=== PATIENT | female | born 1980 | race Caucasian/White ===

== ENCOUNTER → 2018-05-04 11:17 | Outpatient (CLI) | payer OTHER, SELFPAY ==
[2018-05-05 09:16] LABS: Strep Grp B PCR NEG for Grp B Strep
== END ==
PROVIDERS: Family Provider Obstetrics & Gynecology; PCP Obstetrics & Gynecology; Visit Provider Obstetrics & Gynecology
DX: Z34.83 Encounter for supervision of other normal pregnancy, third trimester (principal)
CPT/HCPCS: 87653

== ENCOUNTER 2018-05-19 14:05 | Outpatient (CLI) | payer OTHER, SELFPAY | END 2018-05-19 14:45 | disposition home or self-care (01) | LOC: LABOR 14:12 → OB 05-20 11:56 | PROVIDERS: Family Provider Obstetrics & Gynecology; PCP Obstetrics & Gynecology; Visit Provider Obstetrics & Gynecology | DX: O14.93 Unspecified pre-eclampsia, third trimester (principal); Z3A.37 37 weeks gestation of pregnancy | CPT/HCPCS: 59025; G0378; G0379 ==

== ENCOUNTER 2018-05-25 15:58 | Outpatient (CLI) | payer OTHER, SELFPAY ==
[2018-05-25 16:33] LABS: Platelet Count 211 X10^3/uL (150-400)
[2018-05-25 16:57] LABS: Aspartate Aminotransferase 30 IU/L (14-36); BUN Creatinine Ratio 11.7 (6-22); Blood Urea Nitrogen 7 mg/dL (7-17); Estimated Glomerular Filt Rate > 60.0 mL/min (>60); Uric Acid 5.3 mg/dL (2.5-6.2)
--- NOTE | 2018-05-25 17:45 | PM.OBTRLD ---
Visit Information Visit Information Date of evaluation: 05/25/18 Primary OB Provider: Maria G Fajardo Reason for Evaluation: Yes non-stress test and Yes other Vital Signs Vital Signs: BP 131/81, 124/72 Review of Systems Eyes Eyes: Denies blind spots, Denies blurry vision and Denies change in vision Exam Narrative Exam Narrative: Generally: Patient is sitting up in bed, no acute distress AmniSure: Negative Objective Labs Result Diagrams: 05/25/18 14:14 05/25/18 16:14 Labs: Laboratory Results - last 24 hr 05/25/18 05/25/18 14:14 16:14 Plt Count 211 BUN 7 Creatinine 0.60 Estimated GFR > 60.0 BUN/Creatinine Ratio 11.7 Uric Acid 5.3 AST 30 Evaluation Evaluation Baseline heart rate: 135 monitor accelerations: Present monitor decelerations: Absent Category of Tracing: I Laboratory results: Laboratory Tests 05/25/18 05/25/18 14:14 16:14 Plt Count 211 BUN 7 Creatinine 0.60 Estimated GFR > 60.0 BUN/Creatinine Ratio 11.7 Uric Acid 5.3 AST 30 Non-invasive Membranes Rupture Test: negative Diagnosis, Plan/Disposition Final Diagnosis (1) 38 weeks gestation of : Current Visit: No Status: Acute Plan/Disposition Plan: Discharge to home Follow-up as scheduled on 05/31/2018 Signs and symptoms of preeclampsia reviewed
== END 2018-05-25 17:44 | disposition home or self-care (01) ==
LOC: LABOR 16:49 → OB 05-26 11:07
PROVIDERS: Family Provider Obstetrics & Gynecology; PCP Obstetrics & Gynecology; Visit Provider Obstetrics & Gynecology
DX: O36.8130 Decreased fetal movements, third trimester, not applicable or unspecified (principal); Z3A.38 38 weeks gestation of pregnancy; Z03.71 Encounter for suspected problem with amniotic cavity and membrane ruled out
CPT/HCPCS: 59025; 59050; 84112; 84450; 84550; 85049; G0378; G0379

== ENCOUNTER 2018-05-29 06:01 | Inpatient (IN) | payer OTHER, SELFPAY ==
[2018-05-29 07:52] LABS: Add Manual Diff / Slide Review NO; Basophils Percent Auto 0.4 % (0-2); Eosinophils Percent Auto 0.6 % (2-4); Hematocrit 29.1 % (36-46); Hemoglobin 9.4 g/dL (12.0-16.0); Lymphocytes Percent Auto 28.3 % (25-40); Mean Corpuscular HGB Conc 32.3 % (30-36); Mean Corpuscular Hemoglobin 23.2 PG (26-34); Monocytes Percent Auto 6.8 % (3-14); Neutrophils Absolute Auto 3500 /uL (3000-5900); Neutrophils Percent Auto 63.9 % (50-75); Platelet Count 179 X10^3/uL (150-400); Red Blood Cell Count 4.04 X10^6/uL (4.0-5.2); Red Cell Distribution Width 15.7 % (11.6-14.8); White Blood Cell Count 5.4 X10^3/uL (4.5-11.0)
[2018-05-29] MEDS: OXYTOCIN PREMIX 30 UNIT/500 ML PLAST..BAG IV (09:48)
[2018-05-29] MEDS: LACTATED RINGERS 1,000 ML 125 ML IV (09:48)
[2018-05-29 11:27] VITALS: BP 107/61
[2018-05-29] MEDS: LACTATED RINGERS 1,000 ML 100 ML IV (12:55)
--- NOTE | 2018-05-29 14:57 | P.HPOB_ITS ---
OB HPI Date/Time Date of admission: 05/29/18 Date Patient Seen: 05/29/18 Time Patient Seen: 09:30 History of Present Illness Chief complaint: labor : 6 Para: 3 Estimated Date of Delivery: 06/08/18 Estimated Gestational Age (weeks): 38+ 4 Narrative: Candice Brito is a 37 year old female 6 para 4 who presented at 6:00 a.m. with spontaneous rupture membranes at 4:30 a.m. no significant contractions. History of Present care: good care Dating criteria: LMP confirmed by 1st trimester US Ultrasounds: normal 1st trimester US and normal mid trimester US Obstetrical complications: gestational hypertension Medical complications: none Preadmission Labs Blood type: O (+) positive -: Antibody screen: negative, GBS status: negative, HBsAG: negative, HIV: negative and RPR/VDLR: negative -: Chlamydia screen: not detected and Gonorrhea screen: not detected -: Rubella: immune and Varicella: immune HCT: 32.8 HCAB: negative PAP: Normal Cell-free DNA: 46 xy Urine: Mixed 1 hr GTT: 79 Prior (ies) History: 2 miscarriages 3 spontaneous vaginal deliveries Evaluation Evaluation Baseline heart rate: 145 Variability: Moderate (11-25) monitor accelerations: Present monitor decelerations: Absent Contraction Frequency (minutes): 7 Uterine Contraction Intensity: Moderate Category of Tracing: I Cervical dilation (cm): 4 Cervical effacement (%): 80 station: -1 Laboratory results: Laboratory Tests 05/29/18 05/29/18 06:45 06:45 WBC 5.4 RBC 4.04 Hgb 9.4 L Hct 29.1 L MCV 72.0 L MCH 23.2 L MCHC 32.3 RDW 15.7 H Plt Count 179 Neut % (Auto) 63.9 Lymph % (Auto) 28.3 Chambers % (Auto) 6.8 Eos % (Auto) 0.6 L Baso % (Auto) 0.4 Neut # (Auto) 3500 Blood Type O Positive Antibody Screen Negative Non-invasive Membranes Rupture Test: positive [facility] Social History Smoking Status: Never smoker Meds Home Medications Medication Instructions Recorded Confirmed Type ondansetron [Zofran ODT] 4 mg SUBLINGUAL Q6HP PRN #20 odt 10/27/17 Rx metoclopramide HCl 10 mg PO TID #40 tab 12/06/17 Rx Allergies Allergy/AdvReac Type Severity Reaction Status Date / Time No Known Drug Allergies Allergy Verified 05/29/18 07:04 Exam Vital Signs (past 8 hours): - 05/29/18 11:27 Blood Pressure 107/61 Narrative Exam Narrative: Generally: Patient is sitting up in bed, no acute distress. Status post epidural. Fundal height: 40 cm Estimated weight 8 1/2 pounds Extremities: Negative Homans, no edema Objective Labs Result Diagrams: 05/29/18 06:45 Labs: Laboratory Results - last 24 hr 05/29/18 05/29/18 06:45 06:45 WBC 5.4 RBC 4.04 Hgb 9.4 L Hct 29.1 L MCV 72.0 L MCH 23.2 L MCHC 32.3 RDW 15.7 H Plt Count 179 Neut % (Auto) 63.9 Lymph % (Auto) 28.3 Chambers % (Auto) 6.8 Eos % (Auto) 0.6 L Baso % (Auto) 0.4 Neut # (Auto) 3500 Blood Type O Positive Antibody Screen Negative Assessment and Plan (1) Spontaneous rupture of membranes: Current visit: Yes Status: Acute (2) 38 weeks gestation of : Current visit: Yes Status: Acute Assessment: 37-year-old 6 para 3 at 30 and 4 7th weeks gestation status post spontaneous rupture of membranes No active labor Plan: Pitocin per protocol 2 Expected management to spontaneous vaginal delivery
--- NOTE | 2018-05-29 14:57 | PM.OBPRVD ---
Events: Induced HTN Delivery date: 05/29/18 Intrapartal events: None Delivery augmentation: pitocin Delivery monitor: external FHT Route of delivery: Episiotomy description: None Laceration description: Perineal - 2nd Degree Delivery repair: vicryl and chromic Estimated blood loss (mL): 250 Anesthesia type: Epidural Narrative: Patient complete and pushed with 3 contractions. At 2:28 p.m., a live male delivered spontaneously over an intact perineu. A tight nuchal cord x1 was cut on the perineum. The remainder of the body delivered without difficulty and was placed on mom's abdomen. Cord bloods were obtained. The placenta delivered intact with a 3 vessel cord at 2:38 p.m.. Fundus was massaged to firm. Pitocin was given in the IV fluids. A second-degree perineal laceration was repaired in the usual fashion. . Estimated blood loss 250 cc. Apgars 8 at 1 min and 9 at 5 min. Epidural analgesia. Mom and infant stable to recovery. Plan for aftercare: To routine care
[2018-05-29] MEDS: DERMOPLAST SPRAY 20% 60 ML 1 SPRAY TOP (18:03)
[2018-05-29] MEDS: IBUPROFEN 600 MG TABLET PO (18:03)
[2018-05-30] MEDS: IBUPROFEN 600 MG TABLET PO ×3 (00:47→12:54)
[2018-05-30 06:53] LABS: Hematocrit 28.7 % (36-46); Hemoglobin 9.4 g/dL (12.0-16.0)
[2018-05-30] MEDS: ACETAMINOPHEN 325 MG TABLET 650 MG PO (12:03)
[2018-05-30 13:35] VITALS: BP 130/80; PULSE 97; RESP 15; TEMP 37.4
--- NOTE | 2018-05-31 06:58 | P.DS_ITS ---
Discharge Providers Date of admission: 05/29/18 06:01 Primary care physician: Maria G Fajardo MD Consults: 05/29/18 15:27 Consult to Sr. [employer] Manager Routine Comment: Discharge provider: Maria G Fajardo MD Discharge Date: 05/30/18 Summary Date Patient Seen: 05/30/18 Time Patient Seen: 13:00 Hospital Course: Patient is a 37-year-old who presented with spontaneous rupture of membranes. She did not progress into active labor on her own. She was augmented with Pitocin. She progressed to complete dilation. She had a spontaneous vaginal delivery without complication. Her course was unremarkable and she was discharged home on day 1. Peripartum Data Infant Delivery Method: Natural Vaginal Laceration description: Perineal - 2nd Degree Episiotomy description: None complications: none Discharge Diagnosis (1) Spontaneous rupture of membranes: Status: Acute (2) 38 weeks gestation of : Status: Acute (3) Normal spontaneous vaginal delivery: Status: Acute Status at Discharge Functional status at discharge: wheelchair bound Overall status at discharge: patient is progressing back to baseline Time Spent with Patient Total time spent providing and/or coordinating discharge services: 20 min Objective Labs Result Diagrams: 05/30/18 06:35 Discharge Plan Discharge Plan Patient Disposition: Home, Self-Care Discharge comment: Call with fever, chills or bleeding vaginally more than a pad in an hour Ibuprofen 600mg every 6 hours, Tylenol 650mg every 6 hours Discharge Med Rec/Prescriptions Prescriptions: No Action No Known Home Medications RF: 0 Follow up/Referrals: Maria G Fajardo MD [Primary Care Provider] - 6 Weeks (Jul 12Wednesday at 10am with Dr Fajardo) Provider Discharge Instructions Diet: Diet as Tolerated Activity: No intercourse Wound Care Report to your healthcare provider any signs of infection, such as:: chills, fever, increased pain and unusual drainage Visit Report/Discharge Packet Instructions: DI for Labor and Delivery, Vaginal Visit Report Forms: Stroke Signs & Symptoms Discharge Data Primary Care Provider: Maria G Fajardo Attending Provider: Maria G Fajardo Admit Date/Time: 05/29/18 06:01 Discharges patient from system. Discharge Date/Time: 05/30/18 15:40
== END 2018-05-30 15:40 | disposition home or self-care (01) | DRG 775 ==
PROVIDERS: Admitting Provider Obstetrics & Gynecology; Family Provider Obstetrics & Gynecology; PCP Obstetrics & Gynecology; Visit Provider Obstetrics & Gynecology
DX: O13.4 Gestational [pregnancy-induced] hypertension without significant proteinuria, complicating childbirth (principal); O69.81X0 Labor and delivery complicated by cord around neck, without compression, not applicable or unspecified; Z3A.38 38 weeks gestation of pregnancy; Z37.0 Single live birth; O70.1 Second degree perineal laceration during delivery
CPT/HCPCS: 01967; 36415; 59050; 59400; 85014; 85018; 85025; 86850; 86900; 86901; G0379; J2590; J3010